=== PATIENT | female | born 1935 | race Two or more races ===

== ENCOUNTER 2020-09-20 06:42 | Day surgery (SDC) | payer OTHER ==
[~2020-09-20 06:42] MED LIST: AVAPRO300 MG PO; CALCIUM500 M2 PO; CRESTOR20 MG PO; FELODIPINE ER2.5 MG PO; LETROZOLE2.5 MG PO; NAMENDA5 MG PO
== END 2020-09-20 20:20 | disposition home or self-care (01) ==
LOC: CIR.AMB 06:42
PROVIDERS: ATTEND Surgery
DX: C50.611 Malignant neoplasm of axillary tail of right female breast (principal); C77.3 Secondary and unspecified malignant neoplasm of axilla and upper limb lymph nodes; Z20.828 Contact with and (suspected) exposure to other viral communicable diseases